=== PATIENT | female | born 1985 | race Caucasian/White ===

== ENCOUNTER 2016-10-22 18:01 | Observation (INO) | payer OTHER ==
[~2016-10-22 18:01] MED LIST: IBUPROFEN IB200 MG PO; NORCO 5-325 TA1 EACH PO; PRENATAL VITAMI1 TAB; [UNRECOGNIZED DRUG - REMARK]
[2016-10-22] MEDS ORDERED: METFORMIN HCL500 M2 PO (19:02)
[2016-10-22] MEDS ORDERED: PROGESTERONE200 M1 PO (19:04)
[2016-10-22] MEDS ORDERED: ASPIRIN EC81 MG PO (19:05)
[2016-10-22] MEDS ORDERED: ADALAT CC30 M1 PO (19:05)
[2017-02-14] MEDS ORDERED: FERREX 150150 M1 PO (09:50)
[2017-02-17] MEDS ORDERED: PERCOCET 5-3251 EACH PO (09:10)
[2017-02-17] MEDS ORDERED: IBUPROFEN800 M1 PO (09:10)
== END 2016-10-22 20:30 ==
LOC: LDR 18:01
PROVIDERS: ADMIT Family Medicine
DX: O99.89 Other specified diseases and conditions complicating pregnancy, childbirth and the puerperium (principal); R10.9 Unspecified abdominal pain; Z3A.22 22 weeks gestation of pregnancy; Z88.1 Allergy status to other antibiotic agents